=== PATIENT | male | born 1940 | race Caucasian/White ===

== ENCOUNTER 2017-03-24 02:41 | Emergency (ER) | payer OTHER ==
[2017-03-24 03:00] VITALS: BP 158/80; BMI 24.4
[2017-03-24] MEDS ORDERED: PHENERGAN INJ 25 MG IM ONE (03:20)
[2017-03-24] MEDS ORDERED: TORADOL 60 MG VIAL IM ONE (03:20)
[2017-03-24] MEDS ORDERED: ADACEL TDaP IM ONE ×2 (03:21→03:35)
--- NOTE | 2017-03-24 03:25 | DR.GENAD ---
HPI - PCP Primary Care Physician: Satish Myers - Complaint/Symptoms Chief Complaint Doctors Comments: Patient states a trailor tongue fell on his right great toe about ten hours ago at home. States his toe has been hurting so badily tonmohse that he could not get any sleep and he decided to come to the emergency room. He denies head trauma, chest pain or SOB. States he is unsure of his last tetanus. He denies fever, chills, cold, or cough. states he is a patient of [facility]. He denies alcohol usage. states his toe has been swelling since the accident and he is having problems walking on his right foot. Chief Complaint:: Pt states, "Trailer tongue fell on my big toe around 5 PM. Haven't been able to rest." Self Treatment fo Chief Complaint: No - Nurses notes reviewed Nurses Notes Review: Yes - Source History Provided: Patient - Mode of Arrival Mode of Arrival: Ambulatory - Timing Onset of Chief Complaint: 03/23/17 Came on: Suddenly - Duration Duration: Constant How lon Duration: Hours - Location Location: right great toe - Severity Severity: Moderate, Severe - Modifying Factors Worsens:: walking Improves:: nothing PMH - PMH Past Medical History: Yes Past Medical History: Hypertension Past Surgical History: Yes Surgical History: Ortho Surgery Past Surgical History Comment: Surgery left leg (verocose veins), eye surgery - Family History History of Family Medical Conditions: No Family Medical History: Hypertension - Social History Does patient currently use any type of tobacco product: Yes Have you used tobacco products in the last 12 months: Yes Alcohol Use: Occasionally Do you use any recreational Drugs:: No - infectious screening Have you traveled outside the country in the last 6 months?: No ROS - Review of Systems Constitutional: No Symptoms Reported. negative: See HPI, Chills, Diaphoresis, Fever, Malaise, Weakness, Irritable, Fatigue, Loss of Appetite, Other Eyes: No Symptoms Reported ENTM: No Symptoms Reported Respiratoy: No Symptoms Reported Cardiovascular: No Symptoms Reported. negative: See HPI, Chest Pain, Edema, Palpitations, Syncope, Cyanosis, Skin Mottling, Other Gastrointestinal/Abdominal: No Symptoms Reported. negative: See HPI, Abdominal Pain, Constipation, Diarrhea, Nausea, Vomiting, Food Intolerance, Other Genitourinary: No Symptoms Reported Neurological: No Symptoms Reported, Problems Walking Musculoskeletal: No Symptoms Reported, Right, Foot Integumentary: No Symptoms Reported. negative: See HPI, Change in Color, Change in Hair/Nails, Dryness, Lesions, Lumps, Rash, Itching, Wound, Bruises, Juandice, Other Hematologic/Lymphatic: No Symptoms Reported Endocrine: No Symptoms Reported Psychiatric: No Symptoms Reported. negative: See HPI, Anxiety, Depression, Hallucinations, Excessive crying, Suicidal, Other PE - Vital Signs Vitals: Temperature 97.9 F Pulse Rate 77 Respiratory Rate 20 Blood Pressure [Left Arm] 147/78 Blood Pressure 158/80 O2 Sat by Pulse Oximetry 95 - General Limitations: No Limitations General Appearance: Alert, In Distress (moderate) - Head Head Exam: Normal Inspection, Atraumatic, Normocephalic - Eyes Eye exam: Normal Appearance, PERRL, EOMI. negative: Scleral Icterus, Conjunctival Injection, Nystagmus, Miosis, Mydrasis, Periorbital Swelling, Periorbital Tenderness, Other - ENT ENT Exam: Normal Exam, Normal Oropharynx, Normal External Ear Exam, Mucous Membranes Moist, TM's Normal Bilaterally (dental caries) External Ear Exam: Normal External Inspection TM/Canal Exam: Bilateral Normal Nose Exam: Normal Nose Exam Mouth Exam: Normal Inspection. negative: Drooling, Trismus, Lip Swelling, Tongue Elevation, Tongue Swelling, Laceration, Other Throat Exam: Normal Inspection - Neck Neck Exam: Normal Inspection, Full ROM, Trachea Midline. negative: Tenderness, Meningismus, Lymphadenopathy, Thyromegaly, Other - Chest Chest Inspection: Normal Inspection, Symmetric Chest Wall Rise - Respiratory Respiratory Exam: Normal Lung Sounds Bilat Respiratory Exam: Bilateral Clear to Auscultation - Cardiovascular Cardiovascular Exam: Regular Rate, Normal Rhythm, Normal Heart Sounds - Abdominal Exam Abdominal Exam: Normal Inspection, Normal Bowel Sounds, Soft. negative: Distention, Tenderness, Guarding, Rebound, Rigidity, Dimnished Bowel Sounds, Hyperactive Bowel Sounds, Hypoactive Bowel Sounds, Organomegaly, Trauma, Incision, Ascites, Mass, Bruit, Pulsatile Mass, Hernia, Other Abdominal Tenderness: negative: RUQ, RLQ, LUQ, LLQ, Epigastrium, Suprapubic, Diffuse, Mild, Moderate, Severe, Other - Extremities Extremities Exam: Normal Inspection, Full ROM, Tenderness (right great toe with uprooted toe nail at the base), Normal Capillary Refill - Back Back Exam: Normal Inspection, Full ROM. negative: Tenderness, (R) CVA Tenderness, (L) CVA Tenderness, Muscle Spasm, Paraspinal Tenderness, Vertebral Tenderness, Rashes, (R) Sciatic Notch Tenderness, (L) Sciatic Notch Tendern, (R ) Straight Leg Raise, (L) Straight Leg Raise, Other - Neurologic Neurological Exam: Alert, Oriented X3, CN II-XII Intact, Reflexes Normal. negative: Normal Gait (gait not tested), Motor Sensory Deficit - Psychiatric Psychiatric Exam: Normal Affect, Normal Mood - Skin Skin Exam: Warm, Dry, Intact, Normal Color ROR - Labs Reviewed Laboratory Results Reviewed?: Yes (all x-ray results reviewed and discussed with patient) - XRAY XRAY Interpreted by: Radiologist (Right foot: Comminuted displaced fracture great toe distal phalanx) - Diagnosis Discharge Problem: comminuted fracture right great toe, Contusion of great toe, right Displaced fracture of distal phalanx of great toe Qualifiers: Encounter type: initial encounter Laterality: right Laceration of right great toe Qualifiers: Encounter type: initial encounter - Discharge Plan Disposition: HOME, SELF-CARE Condition: Good Prescriptions: Acetaminophen with Codeine [Tylenol w/Codeine #4 (300 mg/60 mg)] 1 tab PO Q4-6H PRN #28 tab PRN Reason: Pain Cephalexin [KEFLEX CAP 500 MG *] 500 mg PO TID #30 cap Mupirocin Oint [BACTROBAN OINT 2%] 1 applic EXT BID #22 gm - Follow ups/Referrals Follow ups/Referrals: SATISH MYERS [Primary Care Provider] - 3 days NICO GONZALES [STAFF PHYSICIAN] - 3 days - Instructions Instructions: Toe Fracture, Crush Injury, Fingers or Toes, [id number], Laceration Care, Adult, [id number], Nail Bed Laceration
[2017-03-24] MEDS ORDERED: TORADOL 60 MG VIAL ONE (03:34)
[2017-03-24] MEDS ORDERED: PHENERGAN INJ 25 MG ONE (03:36)
--- NOTE | 2017-03-24 04:05 | RAD ---
Three views of the right foot Indication: Trailer fell on great toe Findings: There is comminuted, displaced fracture of the great toe distal phalanx. There is no malali gnment of the great toe interphalangeal joint. There is moderate osteoarthrosis of mild bony deformit y of the great toe MTP joint. Lisfranc joint alignment is maintained. Mild dependent change of the pl ned fascia. Impression: 1.Comminuted, displaced fracture of the great toe distal phalanx without malalignment of the adjacent IP joint. 2. Moderate osteoarthrosis and mild bunion deformity of the great toe MTP joint without acute fractur e. Reported By:
[2017-03-24] MEDS ORDERED: ROCEPHIN VIAL 1 GM IM ONE (04:16)
[2017-03-24] MEDS ORDERED: ROCEPHIN VIAL 1 GM ONE (04:28)
[2017-03-24] MEDS ORDERED: BACTROBAN OINT TOP ONE (04:44)
== END 2017-03-24 05:06 | disposition home or self-care (01) ==
LOC: ER 02:41
DX: S90.111A Contusion of right great toe without damage to nail, initial encounter (principal); S91.111A Laceration without foreign body of right great toe without damage to nail, initial encounter; S92.421A Displaced fracture of distal phalanx of right great toe, initial encounter for closed fracture; M19.90 Unspecified osteoarthritis, unspecified site; W19.XXXA Unspecified fall, initial encounter; Y92.9 Unspecified place or not applicable
CPT/HCPCS: 73630; 90471; 96372; 99282; 99283; J0696; J1885; J2550